=== PATIENT | female | born 1990 | race Caucasian/White ===

== ENCOUNTER 2023-03-19 21:57 | Emergency (ER) | payer BC ==
[2023-03-19] MEDS ORDERED: Ketorolac 30 MG/ML SDV IM ONE (22:24)
[2023-03-19] MEDS ORDERED: predniSONE 20 MG Tab PO ONE (22:26)
[2023-03-19] MEDS ORDERED: Take Home: oxyCODONE HCl 5 MG Tab, 5 Tab Pack PO ONE (22:27)
== END 2023-03-19 22:52 | disposition home or self-care (01) ==
LOC: LL.ED 21:57
DX: R09.1 Pleurisy (principal); Z79.899 Other long term (current) drug therapy
CPT/HCPCS: 96372; 99283; 99284; A9270-GY; J1885; J7512

== ENCOUNTER 2025-01-28 10:09 | Day surgery (SDC) | payer BC ==
[~2025-01-28 10:09] MED LIST: Propofol 200 MG/20 ML SDV ONE; Sodium Chloride 0.9% 10 ML Syringe FLUSH PRN
[2025-01-28] MEDS: Lactated Ringers 1,000 ML IV SCH (10:40)
== END 2025-01-28 11:48 | disposition home or self-care (01) ==
LOC: LL.SDS 10:09
PROVIDERS: ATTEND Surgery
DX: K29.50 Unspecified chronic gastritis without bleeding (principal); K21.9 Gastro-esophageal reflux disease without esophagitis; E28.2 Polycystic ovarian syndrome; K59.00 Constipation, unspecified; E66.811 Obesity, class 1; Z68.31 Body mass index [BMI] 31.0-31.9, adult
CPT/HCPCS: 00731; J2704; J7120